=== PATIENT | female | born 1960 | race Caucasian/White ===

== ENCOUNTER 2022-02-01 14:52 | Outpatient (CLI) | payer BC, SELFPAY ==
[2022-02-01 21:16] LABS: Chloride* 107 mmol/L (96-114); Potassium* 4.6 mmol/L (3.6-5.1); Sodium* 141 mmol/L (135-149)
[2022-02-01 21:19] LABS: Blood Urea Nitrogen* 24 mg/dL (7-30); Calcium* 9.6 mg/dL (8.4-10.6); Carbon Dioxide* 23 mmol/L (20-32); Creatinine* 0.8 mg/dL (0.5-1.5); Estimated Glomerular Filt Rate 85 ml/min; Glucose* 98 mg/dL (60-115)
== END 2022-02-01 14:53 | disposition home or self-care (01) ==
LOC: LKVREF 14:53
PROVIDERS: PCP Family Medicine; Visit Provider Family Medicine
DX: Z01.818 Encounter for other preprocedural examination (principal)
CPT/HCPCS: 80048

== ENCOUNTER 2022-03-25 14:06 | Outpatient (CLI) | payer BC, SELFPAY | END 2022-03-25 14:07 | disposition home or self-care (01) | LOC: LKVREF 14:07 | PROVIDERS: PCP Family Medicine; Visit Provider Physician Assistant Medical | DX: N39.0 Urinary tract infection, site not specified (principal) | CPT/HCPCS: 87086; 87186 ==

== ENCOUNTER 2022-03-27 13:49 | Outpatient (CLI) | payer BC, SELFPAY ==
--- NOTE | 2022-03-27 14:00 | CRLHL7_ITS ---
For Patients: As a result of the Cures Act, medical imaging exams and procedure reports are released immediately into your electronic medical record. You may view this report before your referring provider. If you have questions, please contact your health care provider. INDICATION: Tachycardia. Elevated D-dimer. Recent total knee arthroplasty. TECHNIQUE: CT chest PE was acquired with 95 cc Isovue 370 IV contrast. COMPARISON: None available. FINDINGS: Heart and vasculature: No cardiomegaly, no pericardial effusion. No filling defects identified within the main, lobar, and contrast opacified portions of the segmental pulmonary arteries. Lungs and pleura: No focal consolidation. No evidence of pulmonary infarct. Thyroid and lower neck: No suspicious thyroid nodule. Mediastinum/billie: No lymphadenopathy. Chest wall: No axillary adenopathy. Upper abdomen: Cholelithiasis. Bones: Multilevel degenerative changes of the spine. No suspicious/aggressive focal osseous lesion. Probable bone island in the T10 vertebral body. Probable vertebral body hemangioma in the T8 vertebral body. IMPRESSION: 1. No evidence of acute pulmonary embolus. 2. No focal consolidation. No evidence of pulmonary infarct. 3. Cholelithiasis. Please note that all CT scans at this facility use dose modulation, iterative reconstruction, and/or weight-based dosing when appropriate to reduce radiation dose to as low as reasonably achievable. Dictated by Todd Stevens MD @ 03/27/2022 3:20:39 PM (Electronically Signed)
== END 2022-03-27 13:50 | disposition home or self-care (01) ==
PROVIDERS: PCP Family Medicine; Visit Provider Emergency Medicine
DX: R00.0 Tachycardia, unspecified (principal); K80.20 Calculus of gallbladder without cholecystitis without obstruction; R79.89 Other specified abnormal findings of blood chemistry
CPT/HCPCS: 71260; 84443; Q9967

== ENCOUNTER 2022-06-28 08:39 | Outpatient (CLI) | payer BC, SELFPAY ==
[2022-06-28 14:51] LABS: Albumin* 4.5 g/dL (3.3-5.0); Chloride* 107 mmol/L (96-114); Sodium* 142 mmol/L (135-149)
[2022-06-28 14:53] LABS: Carbon Dioxide* 27 mmol/L (20-32); Cholesterol* 243 mg/dL (90-199); Creatinine* 0.6 mg/dL (0.5-1.5); Estimated Glomerular Filt Rate 103 ml/min
[2022-06-28 14:54] LABS: Alanine Aminotransferase* 23 U/L (4-35); Alkaline Phosphatase* 91 U/L (40-150); Aspartate Amino Transferase* 20 U/L (12-35); Bilirubin Total* 1.1 mg/dL (0.1-1.5); Blood Urea Nitrogen* 25 mg/dL (7-30); Calcium* 9.6 mg/dL (8.4-10.6); Glucose* 91 mg/dL (60-115); HDL Cholesterol* 61 mg/dL (>=50); LDL Cholesterol Calculated 163 mg/dL (<100); Total Protein* 7.6 g/dL (6.0-8.3); Triglycerides* 94 mg/dL (40-149)
== END 2022-06-28 08:40 | disposition home or self-care (01) ==
PROVIDERS: PCP Family Medicine; Visit Provider Family Medicine
DX: E78.00 Pure hypercholesterolemia, unspecified (principal); R79.89 Other specified abnormal findings of blood chemistry
CPT/HCPCS: 80053; 80061

== ENCOUNTER 2022-12-09 08:10 | Outpatient (CLI) | payer BC, SELFPAY | END 2022-12-09 08:11 | disposition home or self-care (01) | PROVIDERS: PCP Family Medicine; Visit Provider Family Medicine | DX: E78.00 Pure hypercholesterolemia, unspecified (principal) | CPT/HCPCS: 80053; 80061 ==

== ENCOUNTER 2023-11-07 08:56 | Outpatient (CLI) | payer BC, SELFPAY | END 2023-11-07 08:57 | disposition home or self-care (01) | PROVIDERS: PCP Family Medicine; Visit Provider Family Medicine | DX: Z00.00 Encounter for general adult medical examination without abnormal findings (principal); E78.00 Pure hypercholesterolemia, unspecified; E66.9 Obesity, unspecified; Z78.0 Asymptomatic menopausal state | CPT/HCPCS: 80053; 80061; 84443 ==

== ENCOUNTER 2023-11-11 12:38 | Outpatient (CLI) | payer BC, SELFPAY | END 2023-11-11 12:39 | disposition home or self-care (01) | LOC: LKVREF 12:39 | PROVIDERS: PCP Family Medicine; Visit Provider Family Medicine | DX: R19.7 Diarrhea, unspecified (principal) | CPT/HCPCS: 87045; 87046; 87077; 87427; 87493 ==

== ENCOUNTER 2024-11-05 09:07 | Outpatient (CLI) | payer BC, SELFPAY | END 2024-11-05 09:08 | disposition home or self-care (01) | LOC: LKVREF 09:09 | PROVIDERS: PCP Family Medicine; Visit Provider Family Medicine | DX: Z00.00 Encounter for general adult medical examination without abnormal findings (principal); E78.00 Pure hypercholesterolemia, unspecified; I10 Essential (primary) hypertension | CPT/HCPCS: 80053; 80061; 84443 ==